=== PATIENT | female | born 1940 | race Asian ===

== ENCOUNTER → 2016-11-13 | Outpatient (CLI) | payer MEDICARE, OTHER ==
[~2016-11-13] MED LIST: AMLO5TAB66 PO; ATEN50TA PO; LOVA40TA PO; OMEP20CA10 PO; POTA8TAB4 PO
== END | disposition home or self-care (01) ==
LOC: RADPV 12:26
PROVIDERS: ATTEND Internal Medicine
DX: J98.11 Atelectasis (principal); I51.7 Cardiomegaly; I70.0 Atherosclerosis of aorta; M41.80 Other forms of scoliosis, site unspecified
CPT/HCPCS: 71020